=== PATIENT | female | born 1995 | race Caucasian/White ===

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

== ENCOUNTER 2019-12-08 09:05 | Inpatient (IN) | payer OTHER ==
--- NOTE | 2019-12-08 09:28 | BHS.RME ---
Substance Use & Tx History - Substance Use History Heroin Substance amount: 4 bundles Frequency of use: Less than 3 times per week Substance route: Injection (ex: intravenous or skin popping) Date of Last Use: 12/08/19 Alcohol Substance amount: 3-4 beers Frequency of use: Less than 3 times per week Substance route: Oral Date of Last Use: 12/07/19 Xanax Substance amount: 2 mg 2-3 tabs Frequency of use: Daily Substance route: Oral Date of Last Use: 12/03/19 Nicotine Substance amount: 1 pack Frequency of use: Daily Substance route: Smoking Date of Last Use: 12/08/19 Physical/Psych/Mental Status - Behavior General Behavior: Increased activity (restlessness, agitation) Eye Contact: Normal - Cooperativeness Cooperativeness: Cooperative - Thinking Thought Processes: Tight, Logical, Goal Directed Thought content: Future oriented - Physical Health Problems Is patient presently having any pain?: No Does patient presently have any injuries (include location): No Does patient currently have a fever: No Is patient : No COWS - Scale Resting Pulse: 0= [place] 80 or Below Sweatin= Beads of Sweat on Face Restless Observation: 1= Difficult to Sit Still Pupil Size: 1= Pupils >than Normal Bone or Joint Aches: 1= Mild Discomfort Runny Nose/ Eye Tearin= None GI Upset > 30mins: 0= None Tremor Observation: 1= Tremor [place], Not Seen Yawning Observation: 1= 1-2x During Session Anxiety or Irritability: 2=Irritable/Anxious Goose Flesh Skin: 0=Smooth Skin COWS Score: 10
[2019-12-08 10:36] VITALS: BMI 22.4
--- NOTE | 2019-12-08 10:57 | HP ---
COWS - Scale Resting Pulse: 0= [place] 80 or Below Sweatin= Beads of Sweat on Face Restless Observation: 1= Difficult to Sit Still Pupil Size: 1= Pupils >than Normal Bone or Joint Aches: 1= Mild Discomfort Runny Nose/ Eye Tearin= None GI Upset > 30mins: 0= None Tremor Observation: 1= Tremor [place], Not Seen Yawning Observation: 1= 1-2x During Session Anxiety or Irritability: 2=Irritable/Anxious Goose Flesh Skin: 0=Smooth Skin COWS Score: 10 CIWA Score - Admission Criteria OASAS Guidelines: Admission for Medically Managed Detox: Requires at least one of the followin. CIWA greater than 12 2. Seizures within the past 24 hours 3. Delirium tremens within the past 24 hours 4. Hallucinations within the past 24 hours 5. Acute intervention needed for co occurring medical disorder 6. Acute intervention needed for co occurring psychiatric disorder 7. Severe withdrawal that cannot be handled at a lower level of care (continued vomiting, continued diarrhea, abnormal vital signs) requiring intravenous medication and/or fluids 8. Admitting History and Physical - Admission Chief Complaint: "I'm here for help." History of Present Illness: 24 year old male with history of alcohol use disorder, opioid dependence with early withdrawal, sedative use disorder, and Nicotine Dependence. Substance Use & Tx History - Substance Use History Heroin Substance amount: 4 bundles Frequency of use: Less than 3 times per week Substance route: Injection (ex: intravenous or skin popping) Date of Last Use: 12/08/19 Patient admits to no prior overdose, but carries no narcan and using large amounts of heroin. Alcohol Substance amount: 3-4 beers Frequency of use: Less than 3 times per week Substance route: Oral Date of Last Use: 12/07/19 Xanax Substance amount: 2 mg 2-3 tabs Frequency of use: Daily Substance route: Oral Date of Last Use: 12/03/19 Nicotine Substance amount: 1 pack Frequency of use: Daily Substance route: Smoking Date of Last Use: 12/08/19 PMH: None Psurg: Left Knee tendon repair Psych: H/O Depression She meets criteria for detox as she is at high risk for overdose, has poor recovery environment and lacks judgment into her disorder. History Source: Patient Limitations to Obtaining History: No Limitations - Past Medical History ...LMP: 02/17/17 - Past Surgical History Past Surgical History: Yes: None - Smoking History Smoking history: Current every day smoker Have you smoked in the past 12 months: Yes Aproximately how many cigarettes per day: 60 - Alcohol/Substance Use Hx Alcohol Use: No History of Substance Use: reports: Heroin, Tranquilizers - Social History Usual Living Arrangement: Yes: With Parent Do you think of yourself as: Straight/Heterosexual ADL: Independent Occupation: unemployed History of Recent Travel: No Admission [facility] Allergies/Adverse Reactions: Allergies Allergy/AdvReac Type Severity Reaction Status Date / Time No Known Allergies Allergy Verified 12/08/19 10:23 Exam Limitations: No Limitations - Ebola screening Have you traveled outside of the country in the last 21 days: No Have you had contact with anyone from an Ebola affected area: No Have you been sick,other than usual withdrawal symptoms: No Do you have a fever: No - Review of Systems Constitutional: Chills EENT: reports: Nose Congestion Respiratory: reports: No Symptoms reported Cardiac: reports: No Symptoms Reported GI: reports: No Symptoms Reported : reports: No Symptoms Reported Musculoskeletal: reports: No Symptoms Reported Integumentary: reports: No Symptoms Reported Neuro: reports: No Symptoms reported Endocrine: reports: No Symptoms Reported Hematology: reports: No Symptoms Reported Psychiatric: reports: Judgement Intact, Orientated x3, Agitated, Anxious Patient History - Patient Medical History Hx Anemia: No Hx Asthma: No Hx Chronic Obstructive Pulmonary Disease (COPD): No Hx Cancer: No Hx Cardiac Disorders: No Hx Congestive Heart Failure: No Hx Hypertension: No Hx Hypercholesterolemia: No Hx Pacemaker: No HX Cerebrovascular Accident: No Hx Seizures: No Hx Dementia: No Hx Diabetes: No Hx Gastrointestinal Disorders: No Hx Liver Disease: No Hx Genitourinary Disorders: No Hx Sexually Transmitted Disorders: No Hx Renal Disease (ESRD): No Hx Thyroid Disease: No Hx Human Immunodeficiency Virus (HIV): No Hx Hepatitis C: No Hx Depression: Yes Hx Suicide Attempt: No Hx Bipolar Disorder: No Hx Schizophrenia: No - Patient Surgical History Past Surgical History: Yes Hx Neurologic Surgery: No Hx Cataract Extraction: No Hx Cardiac Surgery: No Hx Lung Surgery: No Hx Breast Surgery: No Hx Breast Biopsy: No Hx Abdominal Surgery: No Hx Appendectomy: No Hx Cholecystectomy: No Hx Genitourinary Surgery: No Hx Section: No Hx Orthopedic Surgery: Yes (L knee tendon repair in 2010) Hx Hysterectomy: No Anesthesia Reaction: No - PPD History Previous Implant?: Yes Documented Results: Negative w/proof Implanted On Prior [facility] Admission?: Yes Date: 05/04/16 Results: 0 mm PPD to be Administered?: Yes - Reproductive History Last Menstrual Period: 06/02/16 - Smoking Cessation Smoking history: Current every day smoker Have you smoked in the past 12 months: Yes Aproximately how many cigarettes per day: 60 Cigars Per Day: 0 Hx Chewing Tobacco Use: No Initiated information on smoking cessation: Yes 'Breaking Loose' booklet given: 12/08/19 - Substances abused Alcohol Substance route: Oral Frequency: 1-2 times per week Amount used: 3-4 BEERS Age of first use: 17 Date of last use: 12/06/19 Heroin Substance route: Injection Frequency: Daily Amount used: 4 BUNDLES Age of first use: 18 Date of last use: 12/08/19 Alprazolam (Xanax) Substance route: Oral Frequency: 3-6 times per week Amount used: 2-3 TABS Age of first use: 22 Date of last use: 12/03/19 Admission Physical Exam BHS - Vital Signs Vital Signs: Vital Signs - 24 hr 12/08/19 10:32 Temperature 97.3 F L Pulse Rate 78 Respiratory 16 Rate Blood Pressure 111/76 - Physical General Appearance: Yes: Mild Distress, Irritable HEENTM: Yes: EOMI, Hearing grossly Normal, Normal ENT Inspection, Normocephalic, Normal Voice, JAYCE, Pharynx Normal, Tm's normal Respiratory: Yes: Chest Non-Tender, Lungs Clear, Normal Breath Sounds, No Respiratory Distress, No Accessory Muscle Use Neck: Yes: No masses,lesions,Nodules, Supple, Trachea in good position Breast: Yes: Within Normal Limits Cardiology: Yes: Regular Rhythm, Regular Rate, S1, S2 Abdominal: Yes: Normal Bowel Sounds, Non Tender, Flat, Soft Genitourinary: Yes: Within Normal Limits Back: Yes: Normal Inspection Musculoskeletal: Yes: full range of Motion, Gait Steady, Pelvis Stable Extremities: Yes: Normal Capillary Refill, Normal Inspection, Normal Range of Motion, Non-Tender Neurological: Yes: asset card clerk II-XII NML intact, Fully Oriented, Alert, Motor Strength 5/5, Normal Mood/Affect, Normal Response Integumentary: Yes: Normal Color, Warm Lymphatic: Yes: Within Normal Limits - Diagnostic (1) Alcohol use disorder Current Visit: Yes Status: Acute (2) Nicotine dependence Current Visit: Yes Status: Chronic Qualifiers: Nicotine product type: cigarettes Substance use status: uncomplicated Qualified Code(s): F17.210 - Nicotine dependence, cigarettes, uncomplicated (3) Opioid dependence with withdrawal Current Visit: Yes Status: Chronic (4) Depression (emotion) Current Visit: Yes Status: Suspected Qualifiers: Depression Type: dysthymia Qualified Code(s): F34.1 - Dysthymic disorder (5) Drug-induced mood disorder Current Visit: Yes Status: Suspected (6) Moderate benzodiazepine use disorder Current Visit: Yes Status: Acute Cleared for Admission S - Detox or Rehab [facility] Level of Care: Medically Managed Detox Regimen/Protocol: Methadone Claeared for Rehab Admission: No Screened but not Admitted - Documentation of Visit Screened but not Admitted: No Breathalyzer - Breathalyzer Breathalyzer: 0 Vital Signs - Vital Signs Vital signs refused: No Temperature: 97.3 F Temperature source: Oral Pulse Rate: 78 Respiratory Rate: 16 Blood Pressure: 111/76 BP Location: Left Arm Blood Pressure position: Sitting - Height Height: 5 ft 2 in - Weight Weight: 123 lb Weight measurement method: Standing scale - BMI Body Mass Index (BMI): 22.4 - Bowel Function Bowel Movement: No Urine Drug Screen - Test Device Lot number: [id number] Expiration date: 11/17/21 - Control Is test valid?: Yes - Results Drug screen NEGATIVE: No Urine drug screen results: FEN-Fentanyl Inpatient Rehab Admission - Rehab Decision to Admit Inpatient rehab admission?: No
[2019-12-08] MEDS ORDERED: ACETAMINOPHEN 325 MG TABLET (FP) PO PRN ×2 (11:04)
[2019-12-08] MEDS ORDERED: MAG HYDROX/AL HYDROX/SIMETH 30 ML UNIT-DOSE CUP PO PRN (11:04)
[2019-12-08] MEDS ORDERED: MENTHOL/PHENOL 1 EACH UD MM PRN (11:04)
[2019-12-08] MEDS ORDERED: cloNIDine HCL 0.1 MG TABLET PO PRN (11:04)
[2019-12-08] MEDS ORDERED: NICOTINE POLACRILEX 2 MG GUM BUC PRN (11:04)
[2019-12-08] MEDS ORDERED: MAGNESIUM HYDROX 2400MG/30ML ORAL SUSPENSION 30 ML CUP PO PRN (11:04)
[2019-12-08] MEDS ORDERED: METHADONE HCL 10 MG TABLET (FOR DETOX USE ONLY) PO ONE (11:04)
[2019-12-08] MEDS ORDERED: MAGNESIUM CITRATE 300 ML BOTTLE PO PRN (11:04)
[2019-12-08] MEDS ORDERED: ONDANSETRON *ODT* 4 MG TABLET SL ONE (11:04)
[2019-12-08] MEDS ORDERED: BISMUTH SUBSALICYLATE 524 MG/30 ML UD PO PRN (11:04)
--- NOTE | 2019-12-08 11:42 | CONSULT ---
[facility] Psychiatric Consult - Data Date of interview: 12/08/19
[2019-12-08] MEDS: NICOTINE 7 MG/24 HOURS TOPICAL PATCH TD SCH (12:33)
[2019-12-08] MEDS: PRENATAL VITAMINS W/ FOLIC ACID TABLET (FP) PO SCH (12:35)
[2019-12-08] MEDS: hydrOXYzine PAMOATE 25 MG CAPSULE (FP) PO SCH ×3 (13:21→22:15)
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
[2019-12-08] MEDS ORDERED: diazePAM 5 MG TABLET PO ONE (17:32)
--- NOTE | 2019-12-08 17:32 | PN ---
BHS Progress Note Note: pt c/o restlessness , agitation , chills, sweating . Vital Signs - 24 hr 12/08/19 12/08/19 12/08/19 10:32 11:04 11:46 Temperature 97.3 F L 97.3 F L 97.1 F L Pulse Rate 78 78 85 Respiratory 16 16 16 Rate Blood Pressure 111/76 111/76 129/88 O2 Sat by Pulse Oximetry (%) 12/08/19 12:42 Temperature 98.1 F Pulse Rate 137 H Respiratory 20 Rate Blood Pressure 117/83 O2 Sat by Pulse 100 Oximetry (%) encouraged prn meds : Clonidine , Vistaril . P : Valium 10 mg x once ordered
--- NOTE | 2019-12-08 18:27 | EKG ---
Test Reason : Blood Pressure : / mmHG Vent. Rate : 063 BPM Atrial Rate : 063 BPM P-R Int : 154 ms QRS Dur : 086 ms QT Int : 430 ms P-R-T Axes : 034 -11 014 degrees QTc Int : 440 ms NORMAL SINUS RHYTHM POSSIBLE LEFT ATRIAL ENLARGEMENT BORDERLINE ECG WHEN COMPARED WITH ECG OF 20-JUN-2016 15:50, NO SIGNIFICANT CHANGE WAS FOUND Confirmed by CINTHIA MIDDLETON MD ([id number]) on 12/08/2019 6:26:58 PM Referred By: Confirmed By:CINTHIA MIDDLETON MD
[2019-12-08 18:32] LABS: HEMATOCRIT 41.4 % (32.4-45.2); HEMOGLOBIN 13.6 GM/dL (10.7-15.3); MCH 27.6 pg (25.7-33.7); MCHC 32.8 g/dl (32.0-36.0); MEAN CELL VOLUME 84.3 fl (80-96); MEAN PLT VOLUME 8.7 fl (7.5-11.1); PLATELET COUNT 211 K/MM3 (134-434); RDW 13.5 % (11.6-15.6); WHITE BLOOD COUNT 5.2 K/mm3 (4.0-10.0)
[2019-12-08 18:41] LABS: BILIRUBIN,TOTAL 0.4 mg/dL (0.2-1); BLOOD UREA NITROGEN 16.4 mg/dL (7-18); CALCIUM 9.4 mg/dL (8.5-10.1); POTASSIUM 4.1 mmol/L (3.5-5.1); TOT PROT 7.7 g/dl (6.4-8.2)
[2019-12-08] MEDS ORDERED: SUVOREXANT 10 MG TABLET PO PRN (22:00)
[2019-12-08] MEDS ORDERED: MELATONIN 5 MG TABLETS PO SCH (22:00)
[2019-12-08] MEDS ORDERED: THIAMINE HCL 100 MG TABLET (FP) PO SCH (22:00)
[2019-12-08] MEDS: METHOCARBAMOL 500 MG TABLET PO PRN (22:15)
[2019-12-08] MEDS: IBUPROFEN 400 MG TABLET (FP) PO PRN (22:15)
[2019-12-09] MEDS: hydrOXYzine PAMOATE 25 MG CAPSULE (FP) PO SCH (05:44)
[2019-12-09] MEDS ORDERED: MASKS NR ONE (05:44)
[2019-12-09] MEDS: IBUPROFEN 400 MG TABLET (FP) PO PRN (05:48)
[2019-12-09] MEDS: METHOCARBAMOL 500 MG TABLET PO PRN (05:49)
[2019-12-09] MEDS ORDERED: METHADONE HCL 10 MG TABLET (FOR DETOX USE ONLY) ONE (09:50)
[2019-12-09] MEDS ORDERED: METHADONE HCL 5 MG TABLET (FOR DETOX USE ONLY) ONE (09:50)
[2019-12-09 09:54] VITALS: BP 116/81; PULSE 104; TEMP 98.2
--- NOTE | 2019-12-09 09:54 | PN ---
BHS COWS - Scale Resting Pulse: 0= [place] 80 or Below Sweatin= No chills or Flushing Restless Observation: 0= Sits Still Pupil Size: 1= Pupils >than Normal Bone or Joint Aches: 1= Mild Discomfort Runny Nose/ Eye Tearin= None GI Upset > 30mins: 1= Stomach Cramp Tremor Observation of Outstretched Hands: 1= Tremor [place], Not Seen Yawning Observation: 0= None Anxiety or Irritability: 2=Irritable/Anxious Goose Flesh Skin: 3=Piloerection COWS Score: 9 BHS Progress Note (SOAP) Subjective: 24 years old female was admitted on 12/08/19 for opiate withdrawal sx management treating with methadone detox regiment feels anxious ate 10% breakfast bmi 22.5 order regular diet with ensure 120 ml po tid with meals Objective: 12/09/19 09:53 Vital Signs - 24 hr 12/08/19 12/08/19 12/08/19 10:32 11:04 11:46 Temperature 97.3 F L 97.3 F L 97.1 F L Pulse Rate 78 78 85 Respiratory 16 16 16 Rate Blood Pressure 111/76 111/76 129/88 O2 Sat by Pulse Oximetry (%) 12/08/19 12/08/19 12/08/19 12:42 16:42 20:45 Temperature 98.1 F 98.1 F 98.6 F Pulse Rate 137 H 68 77 Respiratory 20 18 18 Rate Blood Pressure 117/83 125/78 123/87 O2 Sat by Pulse 100 100 96 Oximetry (%) 12/09/19 05:35 Temperature 98.0 F Pulse Rate 57 L Respiratory 18 Rate Blood Pressure 109/61 O2 Sat by Pulse 98 Oximetry (%) Laboratory Tests 12/08/19 12/08/19 12/08/19 10:16 11:00 11:00 WBC RBC Hgb Hct MCV MCH MCHC RDW Plt Count MPV Sodium Potassium Chloride Carbon Dioxide Anion Gap BUN Creatinine Est GFR (CKD-EPI)AfAm Est GFR (CKD-EPI)NonAf Random Glucose Calcium Total Bilirubin AST ALT Alkaline Phosphatase Total Protein Albumin POC Urine HCG, Qual Negative Syphilis Serology Non-reactive HIV Ag/Ab Combo Qual Negative 12/08/19 12/08/19 13:50 13:50 WBC 5.2 RBC 4.90 Hgb 13.6 Hct 41.4 MCV 84.3 MCH 27.6 MCHC 32.8 RDW 13.5 Plt Count 211 MPV 8.7 Sodium 139 Potassium 4.1 Chloride 103 Carbon Dioxide 25 Anion Gap 11 BUN 16.4 Creatinine 1.0 Est GFR (CKD-EPI)AfAm 92.61 Est GFR (CKD-EPI)NonAf 79.91 Random Glucose 110 H Calcium 9.4 Total Bilirubin 0.4 AST 21 ALT 22 Alkaline Phosphatase 64 Total Protein 7.7 Albumin 4.0 POC Urine HCG, Qual Syphilis Serology HIV Ag/Ab Combo Qual lab noted increase vistaril to 50 mg po q6h Assessment: 12/09/19 09:54 opiate withdrawal Plan: methadone regiment
[2019-12-09] MEDS ORDERED: hydrOXYzine PAMOATE 50 MG CAPSULE (FP) PO SCH (10:00)
[2019-12-09] MEDS ORDERED: METHADONE (DETOX) 20 MG, METHADONE (DETOX) 5 MG PO ONE (10:00)
[2019-12-09] MEDS: NICOTINE 7 MG/24 HOURS TOPICAL PATCH TD SCH (10:40)
[2019-12-09] MEDS: PRENATAL VITAMINS W/ FOLIC ACID TABLET (FP) PO SCH (10:40)
--- NOTE | 2019-12-09 13:12 | DS ---
[facility] Detox Discharge Summary Admission Date: 12/08/19 Discharge Date: 12/09/19 - History Present History: Opioid Dependence Additional Comments: 24 years old female was admitted on 12/08/19 for opiate withdrawal sx management treated with methadone detox regiment ms mullins states that she needs to "get away from some people" that she wants to go home "I have support to help me stay away from opiate" longest sobriety 2 years unknown reason to keep her opiate free ms mullins reports that tooth removed not long ago dentist gave her percocet and "go down hill" since ms is alert oriented x 3 "I have methadone and xanax at home" General Appearance: Yes: Mild Distress, less Irritable HEENTM: Yes: EOMI, Hearing grossly Normal, Normal ENT Inspection, Normocephalic, Normal Voice, JAYCE, Pharynx Normal, Tm's normal Respiratory: Yes: Chest Non-Tender, Lungs Clear, Normal Breath Sounds, No Respiratory Distress, No Accessory Muscle Use Neck: Yes: No masses,lesions,Nodules, Supple, Trachea in good position Breast: Yes: Within Normal Limits Cardiology: Yes: Regular Rhythm, Regular Rate, S1, S2 Abdominal: Yes: Normal Bowel Sounds, Non Tender, Flat, Soft Genitourinary: Yes: Within Normal Limits Back: Yes: Normal Inspection Musculoskeletal: Yes: full range of Motion, Gait Steady, Pelvis Stable Extremities: Yes: Normal Capillary Refill, Normal Inspection, Normal Range of Motion, Non-Tender Neurological: Yes: legal service 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 II-XII NML intact, Fully Oriented, Alert, Motor Strength 5/5, Normal Mood/Affect, Normal Response Integumentary: Yes: Normal Color, Warm Lymphatic: Yes: Within Normal Limits Pertinent Past History: time for discharge 48 minutes treatment team met with ms mullins to discuss benefits of methadone regiment completion - Physical Exam Results Vital Signs: Vital Signs Temperature 98.2 F 12/09/19 09:07 Pulse Rate 104 H 12/09/19 09:07 Respiratory Rate 20 12/09/19 09:07 Blood Pressure 116/81 12/09/19 09:07 O2 Sat by Pulse Oximetry (%) 98 12/09/19 05:35 Pertinent Admission Physical Exam Findings: opiate withdrawal Vital Signs - 24 hr 12/08/19 12/08/19 12/09/19 16:42 20:45 05:35 Temperature 98.1 F 98.6 F 98.0 F Pulse Rate 68 77 57 L Respiratory 18 18 18 Rate Blood Pressure 125/78 123/87 109/61 O2 Sat by Pulse 100 96 98 Oximetry (%) 12/09/19 09:07 Temperature 98.2 F Pulse Rate 104 H Respiratory 20 Rate Blood Pressure 116/81 O2 Sat by Pulse Oximetry (%) Laboratory Tests 12/08/19 12/08/19 12/08/19 10:16 11:00 11:00 WBC RBC Hgb Hct MCV MCH MCHC RDW Plt Count MPV Sodium Potassium Chloride Carbon Dioxide Anion Gap BUN Creatinine Est GFR (CKD-EPI)AfAm Est GFR (CKD-EPI)NonAf Random Glucose Calcium Total Bilirubin AST ALT Alkaline Phosphatase Total Protein Albumin POC Urine HCG, Qual Negative Syphilis Serology Non-reactive HIV Ag/Ab Combo Qual Negative 12/08/19 12/08/19 13:50 13:50 WBC 5.2 RBC 4.90 Hgb 13.6 Hct 41.4 MCV 84.3 MCH 27.6 MCHC 32.8 RDW 13.5 Plt Count 211 MPV 8.7 Sodium 139 Potassium 4.1 Chloride 103 Carbon Dioxide 25 Anion Gap 11 BUN 16.4 Creatinine 1.0 Est GFR (CKD-EPI)AfAm 92.61 Est GFR (CKD-EPI)NonAf 79.91 Random Glucose 110 H Calcium 9.4 Total Bilirubin 0.4 AST 21 ALT 22 Alkaline Phosphatase 64 Total Protein 7.7 Albumin 4.0 POC Urine HCG, Qual Syphilis Serology HIV Ag/Ab Combo Qual covid pending - Treatment Hospital Course: Detox Protocol Followed, Detoxed Safely, Responded well, Discharged Condition Good Patient has Accepted a Rehab Referral to: community support resources - Medication Discharge Medications: Ambulatory Orders Naloxone HCl [Narcan] 4 mg NS ASDIR PRN #1 spray 12/09/19 - Diagnosis (1) Opioid dependence with withdrawal Status: Acute (2) Substance induced mood disorder Status: Suspected (3) Nicotine dependence Status: Acute Qualifiers: Nicotine product type: cigarettes Substance use status: in withdrawal Qualified Code(s): F17.213 - Nicotine dependence, cigarettes, with withdrawal - AMA Did Patient Leave Against Medical Advice: Yes COWS (PN) - Opiate Withdrawal Resting Pulse: 2= [place] 101-120 Sweatin= Chills/Flushing Restless Observation: 0= Sits Still Pupil Size: 1= Pupils >than Normal Bone or Joint Aches: 1= Mild Discomfort Runny Nose/ Eye Tearin= None GI Upset > 30mins: 0= None Tremor Observation of Outstretched Hands: 1= Tremor [place], Not Seen Yawning Observation: 0= None Anxiety or Irritability: 2=Irritable/Anxious Goose Flesh Skin: 0=Smooth Skin COWS Score: 8
[2019-12-10] MEDS ORDERED: METHADONE HCL 10 MG TABLET (FOR DETOX USE ONLY) PO ONE (10:00)
[2019-12-11] MEDS ORDERED: METHADONE (DETOX) 10 MG, METHADONE (DETOX) 5 MG PO ONE (10:00)
[2019-12-12] MEDS ORDERED: METHADONE HCL 10 MG TABLET (FOR DETOX USE ONLY) PO ONE (10:00)
[2019-12-13] MEDS ORDERED: METHADONE HCL 5 MG TABLET (FOR DETOX USE ONLY) PO ONE (06:00)
== END 2019-12-09 11:58 | disposition left against medical advice (07) | DRG 770 ==
LOC: YASAS 09:05 → Y3N 11:00
PROVIDERS: ADMIT Allergy & Immunology; ATTEND Allergy & Immunology
PROC: HZ2ZZZZ Detoxification Services for Substance Abuse Treatment (ICD-10-PCS; principal; 2019-12-08)
DX: F11.23 Opioid dependence with withdrawal (principal); F10.10 Alcohol abuse, uncomplicated; F13.10 Sedative, hypnotic or anxiolytic abuse, uncomplicated; F17.210 Nicotine dependence, cigarettes, uncomplicated; F19.282 Other psychoactive substance dependence with psychoactive substance-induced sleep disorder; F19.24 Other psychoactive substance dependence with psychoactive substance-induced mood disorder; F43.10 Post-traumatic stress disorder, unspecified; F34.1 Dysthymic disorder
CPT/HCPCS: 36415; 80053; 81025; 85027; 86780; 87389; 93005; 93010; J0735; U0003